=== PATIENT | female | born 1955 | race Caucasian/White ===

== ENCOUNTER 2017-06-02 12:55 | Emergency (ER) | payer OTHER ==
[~2017-06-02] VITALS: Ht 165.1 cm; Wt 82.1 kg
[~2017-06-02 12:55] MED LIST: AMOXICILLIN500 MG PO; ANTIVERT12.5 MG PO; ATIVAN0.5 MG PO; BUSPAR5 MG PO; DAYPRO600 M1 PO; HYDROCODONE BIT1 T11 PO; LOPRESSOR25 MG PO; MEDROL DOSEPAK4 MG PO; PHENERGAN W/ DE30 ML PO; PREDNICOT10 MG PO; PROAIR HFA0.09 MG/AC INH; ULTRAM50 MG PO; VICODIN 500 MG-1 TAB PO; VICODIN ES 7501 TAB PO; ZANTAC150 MG PO; ZOLOFT25 MG PO
[2017-06-02] MEDS ORDERED: CELEXA10 MG PO (13:06)
[2017-06-02] MEDS ORDERED: CYCLOBENZAPRINE10 MG PO (13:56)
[2017-06-02] MEDS ORDERED: ROBAXIN500 M1 PO (14:01)
[2017-06-02] MEDS ORDERED: ANAPROX DS550 MG PO (14:01)
== END 2017-06-02 14:07 | disposition home or self-care (01) ==
LOC: ED 12:55
DX: S39.012A Strain of muscle, fascia and tendon of lower back, initial encounter (principal); F17.200 Nicotine dependence, unspecified, uncomplicated; Z88.0 Allergy status to penicillin; Z88.6 Allergy status to analgesic agent; X50.9XXA Other and unspecified overexertion or strenuous movements or postures, initial encounter; Y93.89 Activity, other specified; Y92.9 Unspecified place or not applicable; Y99.9 Unspecified external cause status

== ENCOUNTER → 2020-03-23 | Outpatient (CLI) | payer MEDICARE ==
[~2020-03-23] MED LIST changes: +ANAPROX DS550 MG PO; +CELEXA10 MG PO; +CYCLOBENZAPRINE10 MG PO; +ROBAXIN500 M1 PO
== END | disposition home or self-care (01) ==
LOC: MRI 10:40
DX: M47.892 Other spondylosis, cervical region (principal); M25.78 Osteophyte, vertebrae; N88.8 Other specified noninflammatory disorders of cervix uteri

== ENCOUNTER → 2020-07-04 | Outpatient (CLI) | payer MEDICARE | END | disposition home or self-care (01) | LOC: MAMMO 13:28 | PROVIDERS: ATTEND Nurse Practitioner Family | DX: Z12.31 Encounter for screening mammogram for malignant neoplasm of breast (principal); N64.89 Other specified disorders of breast ==

== ENCOUNTER 2020-11-12 13:08 | Emergency (ER) | payer OTHER ==
[~2020-11-12] VITALS: Ht 165.1 cm; Wt 84.8 kg
[2020-11-12] MEDS ORDERED: CEPHALEXIN500 M1 PO (13:29)
== END 2020-11-12 13:35 | disposition home or self-care (01) ==
LOC: ED 13:08
DX: L08.9 Local infection of the skin and subcutaneous tissue, unspecified (principal); T50.B95A Adverse effect of other viral vaccines, initial encounter; I10 Essential (primary) hypertension; F32.9 Major depressive disorder, single episode, unspecified; Z88.0 Allergy status to penicillin; Z88.6 Allergy status to analgesic agent; Z79.899 Other long term (current) drug therapy; Z98.51 Tubal ligation status; Y92.89 Other specified places as the place of occurrence of the external cause

== ENCOUNTER → 2021-09-15 | Outpatient (CLI) | payer OTHER ==
[~2021-09-15] MED LIST changes: +CEPHALEXIN500 M1 PO
[2021-09-15 14:01] LABS: HEMATOCRIT 43.6 % (37.0-47.0); MEAN CELL VOLUME 92.2 fl (81.0-99.0); MEAN CORPUSCULAR HGB 30.2 pg (27.0-31.0); MEAN CORPUSCULAR HGB CONC 32.8 g/dl (33.0-37.0); MEAN PLATELET VOLUME 9.3 fl (9.6-12.3); PLATELET COUNT AUTOMATED 164 10*3/uL (130-400); RED BLOOD COUNT 4.73 10*6/uL (4.10-5.10); RED CELL DISTRI WIDTH 12.1 % (0-14.5); WHITE BLOOD COUNT 5.1 10*3/uL (4.8-10.8)
[2021-09-15 14:16] LABS: ALBUMIN 3.5 gm/dl (3.1-4.5); ALKALINE PHOSPHATASE 131 U/L (45-117); BUN 13 mg/dl (7-24); CHLORIDE 106 mmol/L (98-107); CHOLESTEROL 229 mg/dL (<200); CREATININE 0.62 mg/dL (0.55-1.02); LDL CHOLESTEROL 136 mg/dL (9-159); POTASSIUM 4.2 mmol/L (3.5-5.1); SGOT/AST 23 IU/L (3-35); SGPT/ALT 34 U/L (12-78); SODIUM 140 mmol/L (136-145); TOTAL PROTEIN 7.4 gm/dL (6.4-8.2); TRIGLYCERIDES 173 mg/dl (<150)
[2021-09-15 14:18] LABS: TOTAL CELLS COUNTED 100 #CELLS
[2021-09-15 14:19] LABS: PLATELET SUFFICIENCY NORMAL (NORMAL)
== END ==
LOC: LAB 13:23
PROVIDERS: ATTEND Nurse Practitioner Family
DX: I10 Essential (primary) hypertension (principal); E55.9 Vitamin D deficiency, unspecified

== ENCOUNTER → 2022-01-19 | Outpatient (CLI) | payer MEDICARE | END | disposition home or self-care (01) | LOC: RESCLI 01:06 | PROVIDERS: ATTEND Internal Medicine | DX: J44.9 Chronic obstructive pulmonary disease, unspecified (principal); G47.39 Other sleep apnea; F41.9 Anxiety disorder, unspecified; E55.9 Vitamin D deficiency, unspecified; E53.8 Deficiency of other specified B group vitamins; Z13.820 Encounter for screening for osteoporosis; Z12.31 Encounter for screening mammogram for malignant neoplasm of breast; R74.8 Abnormal levels of other serum enzymes; J30.9 Allergic rhinitis, unspecified; I10 Essential (primary) hypertension; Z79.899 Other long term (current) drug therapy; Z88.8 Allergy status to other drugs, medicaments and biological substances; Z88.0 Allergy status to penicillin ==

== ENCOUNTER 2022-02-04 14:32 | Emergency (ER) | payer MEDICARE | END 2022-02-04 16:22 | disposition home or self-care (01) | LOC: ED 14:32 | DX: J02.9 Acute pharyngitis, unspecified (principal); Z20.822 Contact with and (suspected) exposure to COVID-19; Z88.0 Allergy status to penicillin; Z88.6 Allergy status to analgesic agent; Z79.899 Other long term (current) drug therapy; Z98.51 Tubal ligation status ==

== ENCOUNTER → 2022-03-12 | Outpatient (CLI) | payer MEDICARE | END | disposition home or self-care (01) | LOC: US 07:30 → MAMMO 08:30 | PROVIDERS: ATTEND Internal Medicine | DX: Z12.31 Encounter for screening mammogram for malignant neoplasm of breast (principal); K76.0 Fatty (change of) liver, not elsewhere classified; K80.20 Calculus of gallbladder without cholecystitis without obstruction; M85.88 Other specified disorders of bone density and structure, other site ==

== ENCOUNTER → 2022-03-26 | Outpatient (CLI) | payer MEDICARE | END | disposition home or self-care (01) | LOC: RAD 12:15 | PROVIDERS: ATTEND Nurse Practitioner Family | DX: M47.817 Spondylosis without myelopathy or radiculopathy, lumbosacral region (principal); M43.8X6 Other specified deforming dorsopathies, lumbar region ==

== ENCOUNTER 2022-05-12 10:13 | Emergency (ER) | payer MEDICARE ==
[~2022-05-12] VITALS: Ht 165.1 cm; Wt 83.9 kg
== END 2022-05-12 12:18 | disposition home or self-care (01) ==
LOC: ED 10:13
DX: M54.50 Low back pain, unspecified (principal); F17.200 Nicotine dependence, unspecified, uncomplicated; Z88.0 Allergy status to penicillin; Z88.6 Allergy status to analgesic agent; Z79.899 Other long term (current) drug therapy; Z79.2 Long term (current) use of antibiotics; Z98.51 Tubal ligation status

== ENCOUNTER → 2023-01-23 | Outpatient (CLI) | payer MEDICARE | END | disposition home or self-care (01) | LOC: RESCLI 01:17 | PROVIDERS: ATTEND Internal Medicine | DX: J44.9 Chronic obstructive pulmonary disease, unspecified (principal); I10 Essential (primary) hypertension; F41.9 Anxiety disorder, unspecified; J30.9 Allergic rhinitis, unspecified; E55.9 Vitamin D deficiency, unspecified; E53.8 Deficiency of other specified B group vitamins; F17.210 Nicotine dependence, cigarettes, uncomplicated; M51.36 Other intervertebral disc degeneration, lumbar region; Z79.899 Other long term (current) drug therapy; Z88.0 Allergy status to penicillin; Z88.8 Allergy status to other drugs, medicaments and biological substances ==

== ENCOUNTER → 2023-02-05 | Outpatient (CLI) | payer MEDICARE | END | disposition home or self-care (01) | LOC: CT 01:10 | PROVIDERS: ATTEND Internal Medicine | DX: Z12.2 Encounter for screening for malignant neoplasm of respiratory organs (principal); R91.8 Other nonspecific abnormal finding of lung field; F17.210 Nicotine dependence, cigarettes, uncomplicated ==

== ENCOUNTER 2023-03-29 12:16 | Emergency (ER) | payer MEDICARE ==
[~2023-03-29] VITALS: Ht 165.1 cm; Wt 86.2 kg
[2023-03-29] MEDS ORDERED: DICLOFENAC SOD75 MG PO (12:35)
[2023-03-29 13:55] LABS: BILIRUBIN Negative (Negative); BLOOD Negative (Negative); CLARITY Cloudy (Clear); COLOR Dark Yellow (Yellow); GLUCOSE Negative (Negative); KETONE Trace (Negative); LEUKO ESTERASE Trace (Negative); NITRITE Negative (Negative); PH 6.5 (4.5-8.0); SPECIFIC GRAVITY >= 1.030 (1.001-1.030)
[2023-03-29 14:07] LABS: BACTERIA 1+; MUCOUS 1+
[2023-03-29] MEDS ORDERED: CYCLOBENZAPRINE5 M3 PO (15:01)
== END 2023-03-29 15:14 | disposition home or self-care (01) ==
LOC: ED 12:16
PROVIDERS: Emergency Medicine
DX: S23.9XXA Sprain of unspecified parts of thorax, initial encounter (principal); R07.81 Pleurodynia; J44.9 Chronic obstructive pulmonary disease, unspecified; I10 Essential (primary) hypertension; Z88.0 Allergy status to penicillin; Z88.6 Allergy status to analgesic agent; Z98.51 Tubal ligation status; X58.XXXA Exposure to other specified factors, initial encounter; Y93.89 Activity, other specified; Y92.89 Other specified places as the place of occurrence of the external cause; Y99.8 Other external cause status

== ENCOUNTER → 2023-10-07 | Outpatient (CLI) | payer MEDICARE ==
[~2023-10-07] MED LIST changes: +CYCLOBENZAPRINE5 M3 PO; +DICLOFENAC SOD75 MG PO
== END ==
LOC: MAMMO 09-12 11:30
PROVIDERS: ATTEND Nurse Practitioner Family
DX: Z12.31 Encounter for screening mammogram for malignant neoplasm of breast (principal)

== ENCOUNTER → 2024-04-20 | Outpatient (CLI) | payer MEDICARE | END | disposition home or self-care (01) | LOC: RESCLI 02:15 | PROVIDERS: ATTEND Student in an Organized Health Care Education/Training Program | DX: J44.9 Chronic obstructive pulmonary disease, unspecified (principal); E55.9 Vitamin D deficiency, unspecified; E53.8 Deficiency of other specified B group vitamins; E56.9 Vitamin deficiency, unspecified; I10 Essential (primary) hypertension; F41.1 Generalized anxiety disorder; Z88.0 Allergy status to penicillin; Z87.891 Personal history of nicotine dependence; Z88.8 Allergy status to other drugs, medicaments and biological substances; E78.5 Hyperlipidemia, unspecified; F41.0 Panic disorder [episodic paroxysmal anxiety]; M51.36 Other intervertebral disc degeneration, lumbar region; Z79.899 Other long term (current) drug therapy; Z98.890 Other specified postprocedural states ==

== ENCOUNTER → 2024-12-22 | Outpatient (CLI) | payer MEDICARE | END | disposition home or self-care (01) | LOC: MAMMO 15:23 | PROVIDERS: ATTEND Nurse Practitioner Family | DX: Z12.31 Encounter for screening mammogram for malignant neoplasm of breast (principal); R92.313 Mammographic fatty tissue density, bilateral breasts ==

== ENCOUNTER → 2025-03-01 | Outpatient (CLI) | payer MEDICARE | END | disposition home or self-care (01) | LOC: RAD 01:39 | PROVIDERS: ATTEND Internal Medicine | DX: Z12.2 Encounter for screening for malignant neoplasm of respiratory organs (principal); J43.9 Emphysema, unspecified; R91.8 Other nonspecific abnormal finding of lung field; J98.11 Atelectasis; M81.0 Age-related osteoporosis without current pathological fracture; F17.210 Nicotine dependence, cigarettes, uncomplicated ==

== ENCOUNTER 2025-06-28 09:20 | Emergency (ER) | payer MEDICARE ==
[~2025-06-28] VITALS: Ht 165.1 cm; Wt 92.5 kg
[2025-06-28] MEDS ORDERED: diphenhydrAMINE hydrochloride 50 MG/ML VIAL IV ONE (10:15)
[2025-06-28] MEDS ORDERED: Metoclopramide Hydrochloride 10 MG/2 ML VIAL IV ONE (10:15)
[2025-06-28] MEDS ORDERED: Lactated Ringer's Solution 1,000 ML IV SCH (10:15)
[2025-06-28 10:28] LABS: MEAN CELL VOLUME 91.4 fl (81.0-99.0); MEAN CORPUSCULAR HGB 29.9 pg (27.0-31.0); MEAN PLATELET VOLUME 8.8 fl (9.6-12.3); NUCLEATED RED BLOOD CELL 0.0 % (0.0-0.0); NUCLEATED RED BLOOD CELL 0.0 10*3/uL (0.0-0.0); PLATELET COUNT AUTOMATED 160 10*3/uL (130-400); RED CELL DISTRI WIDTH 13.0 % (0-14.5)
[2025-06-28 10:49] LABS: BUN 9 mg/dl (9-23)
[2025-06-28 11:09] LABS: MANUAL DIFF REFLEX YES
[2025-06-28 11:28] LABS: PLATELET SUFFICIENCY NORMAL (NORMAL)
== END 2025-06-28 12:53 | disposition home or self-care (01) ==
LOC: ED 09:20
PROVIDERS: Emergency Medicine
DX: R51.9 Headache, unspecified (principal); Z88.0 Allergy status to penicillin; Z88.6 Allergy status to analgesic agent; Z79.899 Other long term (current) drug therapy